=== PATIENT | male | born 1970 | race Caucasian/White ===

== ENCOUNTER 2022-01-25 08:19 | Observation (INO) ==
[2022-01-25] MEDS ORDERED: allopurinoL 100 MG TABLET PO SCH (09:00)
[2022-01-25] MEDS ORDERED: Acetaminophen 325 MG TABLET PO PRN (09:33)
[2022-01-25] MEDS ORDERED: Ondansetron 4 MG/2 ML VIAL IVP PRN (09:33)
[2022-01-25] MEDS ORDERED: Naloxone 0.4 MG/ML INJ IVP PRN (09:33)
[2022-01-25] MEDS ORDERED: Melatonin 3 MG TABLET PO PRN (09:33)
[2022-01-25 09:46] LABS: BUN/Creatinine Ratio 18 (6-26); Blood Urea Nitrogen 26 mg/dL (6-20); Calcium 10.6 mg/dL (8.6-10.3); Carbon Dioxide 23 mEq/L (23-29); Chloride 100 mEq/L (98-107); Glucose 115 mg/dL (70-105); Osmolality,Calculated 282 (280-300); Phosphorous 3.5 mg/dL (2.7-4.5); Potassium 4.4 mEq/L (3.5-5.1); Sodium 133 mEq/L (136-145); Uric Acid 11.4 mg/dL (2.3-7.6); eGFR For African Americans > 60 (> 60); eGFR For Non-African Americans 52 (> 60)
[2022-01-25 09:49] LABS: Basophils # 0.1 K/mcL (0.0-0.2); Eosinophils # 0.2 K/mcL (0.0-0.6); Hematocrit 43.8 % (37.5-50.1); Hemoglobin 14.3 g/dL (12.9-16.9); Immature Granulocytes % 0.8 % (0-4); Lymphocytes # 0.6 K/mcL (0.6-4.6); Lymphocytes % 12.5 %; Mean Corpuscular HGB Conc 32.6 g/dL (31.6-35.5); Mean Corpuscular Hemoglobin 30.2 pg (28.0-33.3); Mean Corpuscular Volume 92.6 fL (83.0-100.0); Monocytes # 0.7 K/mcL (0.0-1.3); Monocytes % 14.1 %; Neutrophils # 3.4 K/mcL (1.6-8.9); Platelet Count 191 K/mcL (140-400); Red Blood Count 4.73 M/mcL (4.19-5.50); Red Cell Distribution Width 14.6 % (11.5-14.5); Segmented Neutrophils % 68.6 %
[2022-01-25 09:52] LABS: Bilirubin,Urine Negative (Negative); Blood,Urine Small (Negative); Clarity,Urine Clear (Clear); Color,Urine Light-Yellow (Yellow); Glucose,Urine (UA) Normal (Normal); Ketones,Urine Trace mg/dL (Negative); Leukocyte Esterase,Urine Small (Negative); Mucus,Urine Few per lpf (None-Few); Nitrite,Urine Negative (Negative); Protein,Urine Trace mg/dL (Neg-Trace); RBC,Urine 30-50 per hpf (0-3); Specific Gravity,Urine 1.021 (1.010-1.025); Squamous Epithelial Cell,Urine Few per hpf (None-Few); Transitional Epi Cells,Urine Few per hpf (None-Few); Urobilinogen,Urine Normal (Normal); WBC,Urine 15-30 per hpf (0-3)
[2022-01-25] MEDS ORDERED: 0.9 % Sodium Chloride 1,000 ML IV ONE (10:51)
[2022-01-25] MEDS ORDERED: cefTRIAXone 1,000 MG in 0.9 % Sodium Chloride Mini Bag 100 ML IVPB SCH (11:00)
[2022-01-25 11:13] LABS: Alanine Aminotransferase 14 Units/L (7-52); Albumin 3.7 g/dL (3.5-5.7); Albumin/Globulin Ratio 0.9 (1.1-2.2); Alkaline Phosphatase 145 Units/L (34-104); Aspartate Amino Transferase 41 Units/L (13-39); Bilirubin,Direct 0.1 mg/dL (0.0-0.2); Bilirubin,Indirect 0.7 mg/dL (0.0-1.0); Bilirubin,Total 0.8 mg/dL (0.3-1.0); Cancer Antigen 125 26 U/mL (GENDER DEPEND); Globulin 4.2 g/dL (2.4-3.5); Lactate Dehydrogenase 1344 Units/L (140-271); Total Protein 7.9 g/dL (6.4-8.9)
[2022-01-25] MEDS: 0.9 % Sodium Chloride 1,000 ML IVC SCH ×2 (11:54→22:40)
[2022-01-25] MEDS ORDERED: Iopamidol - 370 500 ML MLS IVP ONE (12:46)
[2022-01-25] MEDS ORDERED: RASBURICASE IVPB ONE (15:00)
[2022-01-25] MEDS ORDERED: SODIUM CHLORIDE 0.9% IVPB ONE (15:00)
[2022-01-25] MEDS ORDERED: *HR* Heparin 5,000 UNIT/ML VIAL IVP PRN ×2 (16:04)
[2022-01-25] MEDS ORDERED: *HR* Heparin 5,000 UNIT/ML VIAL IVP ONE (16:04)
[2022-01-25] MEDS ORDERED: Heparin 25,000UNIT/250ML 1/2NS 25,000 UNIT/250 ML IV.SOLN IVC SCH (16:15)
[2022-01-25 17:09] LABS: Hematocrit 39.1 % (37.5-50.1); Mean Corpuscular HGB Conc 33.2 g/dL (31.6-35.5); Mean Corpuscular Hemoglobin 30.4 pg (28.0-33.3); Mean Corpuscular Volume 91.6 fL (83.0-100.0); Mean Platelet Volume 10.6 fL (9.4-12.4); Platelet Count 188 K/mcL (140-400); Red Blood Count 4.27 M/mcL (4.19-5.50); Red Cell Distribution Width 14.7 % (11.5-14.5); White Blood Count 4.7 K/mcL (4.3-11.1)
[2022-01-25 17:17] LABS: Heparin anti-factor XA UFH < 0.04 IU/mL (0.30-0.70); INR 1.1; Prothrombin Time 11.8 Seconds (9.4-12.1)
[2022-01-25 20:06] VITALS: PULSE 80
[2022-01-26 00:10] VITALS: BP 152/88; TEMP 98.1; O2SAT 97
== END 2022-01-26 04:38 | disposition short-term general hospital (02) ==
LOC: SUATTDRO → 3ANU 08:19 → EMEROOARM 08:19 → 3ANU 12:18
PROVIDERS: ADMIT Hospitalist; ATTEND Hospitalist